=== PATIENT | female | born 1985 | race American Indian/Alaskan Native ===

== ENCOUNTER 2017-08-03 08:51 | Emergency (ER) | payer OTHER ==
[2017-08-03] MEDS ORDERED: MOTRIN PO ONE (09:48)
--- NOTE | 2017-08-03 10:45 | XRay Report ---
LEFT ANKLE, 2 views: History: Left ankle injury. Bone mineralization is normal. No acute osseous abnormality or joint pathology is identified. The soft tissues are unremarkable. IMPRESSION: No acute abnormality is appreciated.
--- NOTE | 2017-08-03 10:45 | XRay Report ---
LEFT FOOT, 3 views: History: Injury left foot. The bony architecture is intact. Bony alignment is normal. No soft tissue abnormalities are seen. The joint spaces appear preserved. IMPRESSION: Normal left foot.
--- NOTE | 2017-08-03 10:54 | Emergency Department Report ---
ED Lower Extremity HPI - General Chief Complaint: Extremity Injury, Lower Stated Complaint: ANKLE AND FOOT PAIN. HEAD PAIN Time Seen by Provider: 08/03/17 09:45 Source: patient Mode of arrival: Ambulatory Limitations: No Limitations - History of Present Illness Initial Comments: Patient is a 32-year-old female who stepped off a curb wrong Yesterday and now has some pain in the left foot. The majority of pain is near the heel there is some radiation of through the lateral malleolus region of the ankle. Palpation does have a hard time bearing weight. Patient has no other injury at this time. Patient states pain is 6 out of 10 in severity. - Related Data Previous Rx's Medication Instructions Recorded Last Taken Type Amoxicillin [Trimox CAP] 500 mg PO Q8H #30 capsule 02/08/13 02/16/13 07:00 Rx Promethazine /Codeine 5 ml PO Q6H PRN #120 ml 02/08/13 02/14/13 21:00 Rx [Phenergan/Codeine 6.25-10 mg/5 ml] Amoxicillin [Trimox CAP] 1,000 mg PO Q8H #60 capsule 02/17/13 Unknown Rx Prednisone [predniSONE 10 mg 10 mg PO QDAY #1 tab.ds.pk 02/17/13 Unknown Rx (6-Day Pack, 21 Tabs)] Ibuprofen [Motrin] 800 mg PO Q8HR PRN #20 tablet 08/03/17 Unknown Rx traMADol [Ultram] 50 mg PO Q6HR PRN #12 tablet 08/03/17 Unknown Rx Allergies Allergy/AdvReac Type Severity Reaction Status Date / Time No Known Allergies Allergy Verified 08/03/17 08:53 ED Review of Systems ROS: Stated complaint: ANKLE AND FOOT PAIN. HEAD PAIN Other details as noted in HPI Comment: All other systems reviewed and negative ED Past Medical Hx - Past Medical History Previous Medical History?: No - Surgical History Past Surgical History?: No - Social History Smoking Status: Never Smoker Substance Use Type: Alcohol - Medications Home Medications: Home Medications Medication Instructions Recorded Confirmed Last Taken Type Amoxicillin [Trimox CAP] 500 mg PO Q8H #30 capsule 02/08/13 02/16/13 02/16/13 07 :00 Rx Promethazine /Codeine 5 ml PO Q6H PRN #120 ml 02/08/13 02/16/13 02/14/13 21:00 Rx [Phenergan/Codeine 6.25-10 mg/5 ml] Amoxicillin [Trimox CAP] 1,000 mg PO Q8H #60 capsule 02/17/13 Unknown Rx Prednisone [predniSONE 10 mg 10 mg PO QDAY #1 tab.ds.pk 02/17/13 Unknown Rx (6-Day Pack, 21 Tabs)] Ibuprofen [Motrin] 800 mg PO Q8HR PRN #20 tablet 08/03/17 Unknown Rx traMADol [Ultram] 50 mg PO Q6HR PRN #12 tablet 08/03/17 Unknown Rx ED Physical Exam - General Limitations: No Limitations General appearance: alert, in no apparent distress - Head Head exam: Present: atraumatic, normocephalic - Eye Eye exam: Present: normal appearance - ENT ENT exam: Present: mucous membranes moist - Neck Neck exam: Present: normal inspection - Respiratory Respiratory exam: Present: normal lung sounds bilaterally. Absent: respiratory distress, wheezes, rales - Cardiovascular Cardiovascular Exam: Present: regular rate, normal rhythm. Absent: systolic murmur, diastolic murmur, rubs, gallop - GI/Abdominal GI/Abdominal exam: Present: soft, normal bowel sounds - Extremities Exam Extremities exam: Present: normal inspection, tenderness (patient has tenderness at the left foot near the arch and heel and some mild tenderness and swelling to the lateral malleolus) - Back Exam Back exam: Present: normal inspection - Neurological Exam Neurological exam: Present: alert, oriented X3 - Psychiatric Psychiatric exam: Present: normal affect, normal mood - Skin Skin exam: Present: warm, dry, intact, normal color. Absent: rash ED Course Vital Signs 08/03/17 08/03/17 08:54 09:54 Temperature 98.3 F Pulse Rate 87 Respiratory 18 18 Rate Blood Pressure 117/71 O2 Sat by Pulse 98 Oximetry ED Lower Extremity MDM - Radiology Data X-rays of the left ankle and left foot show no acute bony abnormality - Medical Decision Making [facility] be [facility] given crutches. Patient will be discharged home with orthopedic follow-up. Critical care attestation.: If time is entered above; I have spent that time in minutes in the direct care of this critically ill patient, excluding procedure time. ED Disposition Clinical Impression: Sprain of foot, left Qualifiers: Encounter type: initial encounter Qualified Code(s): S93.602A - Unspecified sprain of left foot, initial encounter Disposition: - TO HOME OR SELFCARE Is pt being admited?: No Does the pt Need Aspirin: No Condition: Stable Instructions: Foot Sprain (ED) Referrals: FELECIA DAMON MD [Staff Physician] - 3-5 Days
[2017-08-03 11:14] VITALS: BP 127/56
== END 2017-08-03 11:09 | disposition home or self-care (01) ==
LOC: ED 08:51
DX: S93.602A Unspecified sprain of left foot, initial encounter (principal); Z79.899 Other long term (current) drug therapy; W22.8XXA Striking against or struck by other objects, initial encounter; Y93.89 Activity, other specified; Y99.8 Other external cause status; Y92.89 Other specified places as the place of occurrence of the external cause